=== PATIENT | male | born 1965 | race Caucasian/White ===

== ENCOUNTER 2017-09-15 23:36 | Emergency (ER) | payer BC ==
[~2017-09-15] VITALS: Ht 180.3 cm; Wt 74.8 kg
[2017-09-15 23:38] VITALS: BP 146/96
[2017-09-16] MEDS ORDERED: AMOX/CLAVULANATE 875 MG TABLET ONE (00:54)
[2017-09-16] MEDS ORDERED: TDAP [DIPH/PERTUSSIS/TET] 0.5 ML VIAL IM ONE ×2 (00:55→01:00)
[2017-09-16] MEDS ORDERED: AMOX/CLAVULANATE 875 MG TABLET PO ONE (01:00)
== END 2017-09-16 01:03 | disposition home or self-care (01) ==
LOC: ER 23:36
DX: S80.812A Abrasion, left lower leg, initial encounter (principal); S61.452A Open bite of left hand, initial encounter; I10 Essential (primary) hypertension; W54.0XXA Bitten by dog, initial encounter; Y93.89 Activity, other specified; Y92.009 Unspecified place in unspecified non-institutional (private) residence as the place of occurrence of the external cause; Y99.8 Other external cause status
CPT/HCPCS: 90715; A4217; A4606; Z7610